=== PATIENT | female | born 1990 | race Caucasian/White ===

== ENCOUNTER 2017-01-04 08:51 | Outpatient (CLI) | payer OTHER ==
[~2017-01-04] VITALS: Ht 165.1 cm; Wt 128.1 kg
[2017-01-04] MEDS ORDERED: PREN1TAB13 PO (09:31)
[2017-01-04 09:32] VITALS: BP 125/75; PULSE 109; RESP 20; Ht 165.1 cm; Wt 128.1 kg
--- NOTE | 2017-01-04 10:35 | RADRPT ---
PROCEDURE: US OB biophysical profile. CLINICAL INDICATION: Contractions TECHNIQUE: Multiple sonographic images of the pelvis were obtained. The images were reviewed on a PACS workstation. COMPARISON: None FINDINGS: There is a single live intrauterine , in cephalic presentation. A normal heart rate i s identified measuring 137 beats per minute. The amniotic fluid index is within normal limits measur ing 15.7 cm. Biophysical profile: movement 2/2 tone 2/2. breathing 2/2 AKOSUA 2/2 Total 09/12 IMPRESSION: 1. Biophysical profile score of 8/8. 2. Single live intrauterine in cephalic presentation with normal heart rate of 137 b pm. 3. Normal amniotic fluid index of 15.7 cm. RPTAT: AAPP Physician Sherman Date Time Electronically viewed and signed by Physician Sherman on 01/04/2017 10:35 ZACHARY/
[2017-01-04 11:35] LABS: ADD UMIC YES; UR AMORPHOUS CRYSTAL FEW /HPF (NONE SEEN); UR ASCORBIC ACID NEGATIVE (NEGATIVE); UR BACTERIA FEW /HPF (NONE SEEN); UR BILIRUBIN (Dip) NEGATIVE (NEGATIVE); UR BLOOD (Dip) NEGATIVE (NEGATIVE); UR CLARITY CLOUDY (CLEAR); UR COLOR YELLOW (YELLOW); UR GLUCOSE (Dip) NEGATIVE (NEGATIVE); UR KETONES (Dip) NEGATIVE (NEGATIVE); UR LEUKOCYTE ESTERASE (Dip) 2+ Leu/ul (NEGATIVE); UR NITRITE (Dip) NEGATIVE (NEGATIVE); UR RBC 4 /HPF (0-5); UR SPECIFIC GRAVITY (Dip) 1.014 (1.003-1.030); UR SQUAMOUS EPITHELIAL CELL FEW /HPF (FEW); UR TOTAL PROTEIN (Dip) NEGATIVE (NEGATIVE); UR UROBILINOGEN (Dip) 1+ mg/dL (NEGATIVE)
--- NOTE | 2017-01-04 12:31 | TRIAGE ---
OB Triage Datetime Report Generated by CPN: 01/04/2017 12:30 Datetime: 01/04/2017 12:22 Vaginal Exam Dilatation (cms): 1.0 Effacement (%): 50 Station: -3 Exam By: FOROOHAR Datetime: 01/04/2017 11:30 Stage of : OB Triage Maternal Assessment Level of Consciousness: Fully Conscious Labor Evaluation Frequency: OCCASIONAL Monitor Mode: External Duration (sec)2399: 100 Quality: Moderate Resting Tone [place]: Relaxed Heart Rate FHR Baseline Rate: 145 Monitor Mode: External US Variability: Moderate 6-25 bpm Accelerations: 15X15 Decelerations: None Pain Assessment Pain Scale: 0 Pain Goal: 3 Membrane Status: Intact Vaginal Bleeding: None Datetime: 01/04/2017 10:30 Stage of : OB Triage Maternal Assessment Level of Consciousness: Fully Conscious Labor Evaluation Frequency: OCCASIONAL Monitor Mode: External Duration (sec)2399: 90-120 Quality: Moderate Resting Tone [place]: Relaxed Heart Rate FHR Baseline Rate: 145 Monitor Mode: External US Variability: Moderate 6-25 bpm Accelerations: 15X15 Decelerations: None Category: Category I Pain Assessment Pain Scale: 0 Pain Goal: 3 Membrane Status: Intact Vaginal Bleeding: None Datetime: 01/04/2017 09:45 Vaginal Exam Dilatation (cms): 1.0 Effacement (%): 60 Station: -3 Exam By: BECKIEJosefina Vaginal Bleeding: None Cervix, Consistency: Soft Cervix, Position: Posterior Datetime: 01/04/2017 09:30 Assessment Type: Triage Maternal Assessment Level of Consciousness: Fully Conscious DTR's/Clonus: DTRs 2+; No Clonus Headache: Denies Blurred Vision: No Respiratory Effort: Unlabored; Regular Rhythm; Equal Expansion Breath Sounds, Left: Clear and Equal Breath Sounds, Right: Clear and Equal Nausea/Vomiting: Denies RUQ Epigastric Pain: Denies Lower Extremities Edema: None Degree: None Upper Extremities Edema: None Degree: None Facial Edema: None Fall Risk Assessment History of Falling: (0) No Secondary Diagnosis: (0) No Ambulatory Aid: (0) Bedrest/Nurse Assist IV Therapy: (0) No Gait: (0) Normal/Bedrest/Immobile Mental Status: (0) Oriented to Own Ability Fall Score: 0 Fall Risk Score Definition: No Risk: No action required Datetime: 01/04/2017 09:29 Time of Arrival: 01/04/2017 08:48 EGA: 39.3 Arrived By: Ambulatory Arrived From: Home Chief Complaint: PT HERE C/O UC'S Movement: Present Contractions: Irregular Time Contractions Began: 01/03/2017 17:00 Rupture of Membranes: Denies Vaginal Bleeding: None Vaginal Discharge: Present Recent Sexual Intercouse: Denies Abdominal Trauma: Not Applicable Patient Complaints: Contractions; Cramping; Back Pain Time Provider Notified: 01/04/2017 09:55 Provider Notified: ANTONIA Initial Plan: EFM/SVE Datetime: 01/04/2017 09:26 Monitor Mode: External Monitor Mode: External US
--- NOTE | 2017-01-04 12:39 | CONS ---
Date/Time of Note Date/Time of Note DATE: 01/04/17 TIME: 12:31 Consultation Date/Type/Reason Admit Date/Time January 04, 2017 OB triage consult This patient is a 26 years old 3 para 1 1 with estimated date of confinement of January 08, 2017 which makes her 39 weeks and 3 days . She came in for possible labor evaluation. On examination she is a well-developed well-nourished lady at term. Her general vital signs are within normal limits with blood pressure of 125/75, pulse rate of 109 respiration 18 temperature 98.2,,, oxygen saturation in room temperature of 95. On examination her ear nose throat appears to be normal his neck is normal no neck vein distention no thyroidomegaly abdomen is soft there is very scattered contraction no palpable contractions no CVA tenderness. On pelvic examination the cervix is 1 cm dilated 50% effaced at -3 station with intact membrane. . Laboratory Tests Test 01/04/17 10:30 Urine Color YELLOW Urine Clarity CLOUDY Urine pH 7.0 Urine Specific [place] 1.014 Urine Ketones NEGATIVEmg/dL Urine Nitrite NEGATIVEmg/dL Urine Bilirubin NEGATIVEmg/dL Urine Urobilinogen 1+mg/dL Urine Leukocyte Esterase 2+Tye/ul Urine Microscopic RBC 4/HPF Urine Microscopic WBC 14/HPF Urine Squamous Epithelial Cells FEW/HPF Urine Amorphous Crystals FEW/HPF Urine Bacteria FEW/HPF Urine Hemoglobin NEGATIVEmg/dL Urine Glucose NEGATIVEmg/dL Urine Total Protein NEGATIVEmg/dl Constitutional: No chills, No diaphoresis, No disoriented, No febrile, No improved, No no complaints, No other, No poor po, No requiring IVF, No requiring O2 Eyes: No discharge, No no complaints, No other, No pain, No redness, No visual change ENT: No bleeding, No congestion, No discharge, No dysphagia, No no complaints, No other, No pain, No sore throat Respiratory: No cough, No no complaints, No other, No pain, No pleuritic pain, No shortness of breath, No sputum, No wheezing Cardiovascular: No chest pain, No edema, No lightheadedness, No no complaints, No orthopenea, No other, No palpitations, No paroxysmal nocturnal dyspnea Gastrointestinal: No blood, No constipation, No decreased appetite, No diarrhea , No flatus, No nausea, No no complaints, No other, No pain, No passing stool, No vomiting Genitourinary: No bleeding, No discharge, No dysuria, No flank pain, No hematuria, No no complaints, No other Skin: No bruising, No erythema, No laceration, No no complaints, No other, No pruritis, No rash, No skin lesions Neurologic: No confusion, No dizziness, No focal-weakness, No headache, No no complaints, No other, No seizure, No syncope Additional Comments On lab study her urinalysis showed 1+ urinary urobilinogen leukoesterase plus and WBC 14. Due to history of urinary tract infection during this and antibiotic treatment 2 weeks ago we will send a urine specimen again for culture and sensitivity. We will hold onto antibiotic treatment to the result of the culture sensitivity is available for possible new type of antibiotic depending on the results of culture sensitivity. On ultrasound study report is single live intrauterine in cephalic presentation heartbeat of the baby 137 amniotic fluid index was 17.7 cm her biophysical profile of 8/8. We repeated the pelvic examination for about 2-1/2 hours of stay in the hospital and cervix was completely unchanged. Disposition due to very scattered contraction and lack of change of the cervix and no evidence of active labor patient will be discharged home in the urine specimen for sent will be sent for culture and sensitivity she is advised to return to the clinic if any true evidence of labor vaginal bleeding rupture membrane. Social History Smoking Status: Never smoker Exam/Review of Systems Vital Signs Vitals Vital Signs Date Time Temp Pulse Resp B/P Pulse Ox O2 Delivery O2 Flow Rate FiO2 01/04/17 09:32 98.2 109 20 125/75 95 Room Air Results Results 24 hrs Laboratory Tests Test 01/04/17 10:30 Urine Color YELLOW Urine Clarity CLOUDY A Urine pH 7.0 Urine Specific [place] 1.014 Urine Ketones NEGATIVE Urine Nitrite NEGATIVE Urine Bilirubin NEGATIVE Urine Urobilinogen 1+ H Urine Leukocyte Esterase 2+ H Urine Microscopic RBC 4 Urine Microscopic WBC 14 H Urine Squamous Epithelial Cells FEW Urine Amorphous Crystals FEW A Urine Bacteria FEW A Urine Hemoglobin NEGATIVE Urine Glucose NEGATIVE Urine Total Protein NEGATIVE JANE KNIGHT MD Jan 04, 2017 12:39
== END 2017-01-04 12:39 | disposition home or self-care (01) ==
LOC: OBT 08:51 → L-D 08:51 → OBT 12:39
PROVIDERS: ATTEND Obstetrics & Gynecology
DX: O62.9 Abnormality of forces of labor, unspecified (principal); Z3A.39 39 weeks gestation of pregnancy
CPT/HCPCS: 76818; 81001; Z7500; G0463

== ENCOUNTER 2017-01-05 11:52 | Inpatient (IN) | payer OTHER ==
[~2017-01-05] VITALS: Ht 162.6 cm; Wt 128.7 kg
[~2017-01-05 11:52] MED LIST: PREN1TAB13 PO
[2017-01-05] MEDS ORDERED: OXYTOCIN 30 UNITS/LR 500 ML IV SCH (13:13)
[2017-01-05] MEDS ORDERED: MISOPROSTOL 200 MCG TAB PR PRN ×2 (13:30→17:30)
[2017-01-05] MEDS ORDERED: OXYCODONE/ACETAMINOPHEN (5/325) TAB PO PRN ×2 (13:30)
[2017-01-05] MEDS ORDERED: OXYTOCIN 30 UNITS/LR 500 ML IV PRN ×2 (13:30→17:30)
[2017-01-05] MEDS ORDERED: CARBOPROST 250 MCG INJ IM PRN ×2 (13:30→17:30)
[2017-01-05] MEDS ORDERED: METHYLERGONOVINE 0.2 MG INJ IM PRN ×2 (13:30→17:30)
[2017-01-05] MEDS ORDERED: LANOLIN 7 GM TUBE TOP PRN (13:30)
[2017-01-05] MEDS ORDERED: HYDROCODONE/APAP (5/325) TAB PO PRN ×2 (13:30)
[2017-01-05] MEDS ORDERED: CEFAZOLIN 1 GM/50 ML (PMX) 50 ML IVPB SCH (13:30)
--- NOTE | 2017-01-05 13:31 | HP ---
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 Chief Complaint: 39 weeks history of previous Estimated Due Date: Jan 12, 2017 : 4 Para: 2 Spontaneous : 1 Therapeutic : 0 Ultrasounds: Normal mid trimester US Obstetrical Complications: None Past Family/Social History * Past Medical, Surgical, Family and Obstetric Histories reviewed from chart. Rubella: immune RPR/VDRL: Negative GBS Status: Negative HBsAG: Negative OB Admission Exam Physical Exam HEENT: WNL Heart: Rhythm Normal Lungs: Clear, Equal Abdomen: WNL Reflexes: Normal Station: Ballotable Membranes: Intact Heart Rate: 130's Accelerations: Accelerations Present Decelerations: No Decelerations Varibility: Moderate OB Assessment/Plan Reason for admission: other (39 weeks history of previous section) Other plan: 41 week Ab1 EDC January 12, 2017 history of previous admitted at 39 weeks gestation for repeat section complication of the surgery including bowel bladder injury infection hemorrhage or hematoma wound infection has been discussed with the patient and she would like to proceed with the procedure. YVONNE PEGUERO MD Jan 05, 2017 13:29
--- NOTE | 2017-01-05 13:57 | RADRPT ---
PROCEDURE: US OB. CLINICAL INDICATION: Size and dates TECHNIQUE: Multiple sonographic images of the pelvis and gravid uterus were obtained. The images were reviewed on a PACS workstation. COMPARISON: US PELVIS 01/04/2017 FINDINGS: There is a single viable intrauterine gestation. Cardiac activity is present with 161 beats per min cheo. There is a vertex presentation. The placenta is anterior fundal. There is no evidence for an abruption or placenta previa. Measurements were made in order to determine age. The results are as follows: BPD =9.5 cm HC =33.8 cm AC =36.2 cm FL =6.9 cm Estimated gestational age of approximately 38 weeks and 2 days based on ultrasound measurements. Clinical age: 39 weeks and 4 days. The estimated date of delivery is 01/17/17, based on ultrasound measurements. The EFW = 3599 g, 55%, based on LMP age. RPTAT: AA IMPRESSION: Single viable intrauterine gestation of approximately 38 weeks and 2 days based on ultrasound measu rements. .Jacinto Cartwright MD, Date Time Electronically viewed and signed by .Jacinto Cartwright MD, on 01/05/2017 13:57 .S/
--- NOTE | 2017-01-05 13:59 | RADRPT ---
PROCEDURE: US OB biophysical profile. CLINICAL INDICATION: decreased movements, TECHNIQUE: Multiple sonographic images of the pelvis were obtained. The images were reviewed on a PACS workstation. COMPARISON: US PELVIS 01/04/2017 FINDINGS: There is a single viable intrauterine gestation. Cardiac activity is present with 156 beats per min teller. There is a vertex presentation. The placenta is anterior fundal. There is no evidence of placental abruption. There is a normal amount of amniotic fluid with an KAOSUA = 10.7 cm. Biophysical profile: movement 2/2 tone 2/2. breathing 2/2 AKOSUA 2/2 Total 09/12 RPTAT: AA . IMPRESSION: Normal biophysical profile. . .Jacinto Cartwright MD, MD Date Time Electronically viewed and signed by .Jacinto Cartwright MD, MD on 01/05/2017 13:59 .S/
--- NOTE | 2017-01-05 17:11 | HP ---
Date/Time of Note Date/Time of Note DATE: 01/05/17 TIME: 17:06 OB - History Hx of Present Free Text/Dictation 26 years old female SAB 2 IAB 2 EDC January 08, 2017 admitted to the hospital at 39 weeks and 4 day in early labor pelvic examination on admission cervix 2-1/2 cm dilated 60% effaced vertex at -2 station heart rate category 1 Chief Complaint: Labor contraction Estimated Due Date: Jan 08, 2017 : 6 Para: 1 Spontaneous : 2 Care: Good Care Ultrasounds: Normal mid trimester US Obstetrical Complications: None Medical Complications: None Past Family/Social History * Past Medical, Surgical, Family and Obstetric Histories reviewed from chart. Rubella: immune RPR/VDRL: Negative GBS Status: Negative HBsAG: Negative OB Admission Exam Physical Exam HEENT: WNL Heart: Rhythm Normal Lungs: Clear, Equal Abdomen: WNL Extremities: Normal Reflexes: Normal Cervical Dilatation: 2cm Effacement: Other (60% effaced vertex at -2 station) Station: -2 Membranes: Intact Heart Rate: 130's Accelerations: Accelerations Present Varibility: Moderate Contractions on Admission: 6-10 Minutes Apart Intensity: Mild OB Assessment/Plan Reason for admission: other (39 weeks 4 days onset of labor) Other plan: 26 years old female G6, P1 SAB 2 IAB 2 admitted at 39 weeks and 4 days in early labor admitted for expecting management possible delivery YVONNE PEGUERO MD Jan 05, 2017 17:11
[2017-01-05 17:25] LABS: BASOPHILS % 0.2 % (0.0-2.0); EOSINOPHILS # 0.1 10^3/ul (0.0-0.5); EOSINOPHILS % 0.8 % (0.0-7.0); HEMATOCRIT 31.7 % (37.0-47.0); HEMOGLOBIN 10.6 g/dl (12.0-16.0); LYMPHOCYTES # 2.4 10^3/ul (0.8-2.9); LYMPHOCYTES % 19.6 % (15.0-51.0); MEAN CORPUSCULAR HEMOGLOBIN 28.9 pg (29.0-33.0); MEAN CORPUSCULAR HGB CONC 33.4 g/dl (32.0-37.0); MEAN CORPUSCULAR VOLUME 86.4 fl (82.0-101.0); MEAN PLATELET VOLUME 9.6 fl (7.4-10.4); MONOCYTE # 0.8 10^3/ul (0.3-0.9); MONOCYTES % 6.8 % (0.0-11.0); NEUTROPHIL # 8.6 10^3/ul (1.6-7.5); NEUTROPHILS % 70.6 % (39.0-77.0); PLATELET COUNT 223 10^3/UL (140-415); RED BLOOD COUNT 3.67 10^6/ul (4.20-5.40); RED CELL DISTRIBUTION WIDTH 15.4 % (11.5-14.5); WHITE BLOOD COUNT 12.2 10^3/ul (4.8-10.8)
[2017-01-05 17:30] LABS: INR 0.96; PROTIME 12.9 Sec (11.9-14.9)
[2017-01-05] MEDS ORDERED: IBUPROFEN 600 MG TAB PO PRN (17:30)
[2017-01-05] MEDS ORDERED: LIDOCAINE 1% (MPF) 30 ML INJ INJ PRN (17:30)
[2017-01-05 17:31] LABS: PARTIAL THROMBOPLASTIN TIME 35.3 Sec (25.0-35.0)
[2017-01-05] MEDS: LACTATED RINGER'S 1,000 ML IV SCH (17:42)
[2017-01-05 17:47] VITALS: Ht 162.6 cm; Wt 128.7 kg
[2017-01-05 17:48] VITALS: BP 128/61; PULSE 100; RESP 18
[2017-01-05] MEDS ORDERED: IBUPROFEN 600 MG TAB PO SCH (18:00)
[2017-01-05 20:03] LABS: BARBITURATES Negative (NEGATIVE); BENZODIAZEPINES Negative (NEGATIVE); COCAINE Negative (NEGATIVE); OPIATES Negative (NEGATIVE)
[2017-01-05 20:22] LABS: CANNABINOIDS Negative (NEGATIVE)
[2017-01-05] MEDS: BUTORPHANOL 2 MG INJ IV PRN (23:47)
[2017-01-06] MEDS: LACTATED RINGER'S 1,000 ML IV SCH ×3 (00:33→17:14)
[2017-01-06] MEDS ORDERED: SENNA/DOCUSATE NA (8.6MG/50MG) TAB PO SCH (09:00)
[2017-01-06] MEDS: OXYTOCIN 30 UNITS/LR 500 ML IV SCH (10:33)
[2017-01-06] MEDS: BUTORPHANOL 2 MG INJ IV PRN (19:28)
[2017-01-07] MEDS: OXYTOCIN 30 UNITS/LR 500 ML IV SCH ×5 (00:49→21:24)
[2017-01-07] MEDS: LACTATED RINGER'S 1,000 ML IV SCH ×3 (01:51→17:18)
[2017-01-07] MEDS ORDERED: CEFAZOLIN 2 GM/50 ML (PMX) 50 ML IVPB ONE ×2 (09:00→09:03)
[2017-01-07] MEDS ORDERED: FENTAnyl 50 MCG/ML VIAL ONE (10:30)
[2017-01-07] MEDS ORDERED: PHENYLephrine (100 MCG/ML) 5ML SYG ONE (10:30)
[2017-01-07] MEDS ORDERED: morphine SULFATE/PF (10 MG/10 ML) INJ ONE (10:30)
[2017-01-07] MEDS ORDERED: ONDANSETRON 4 MG INJ ONE ×2 (10:43→14:17)
[2017-01-07] MEDS ORDERED: DEXAMETHASONE 4 MG/ML 1 ML INJ ONE (10:43)
--- NOTE | 2017-01-07 11:57 | OPR ---
Operative Report Planned Procedure Free Text/Dictation 26 years old female [id number] EDC January 08, 2017 admitted at 39 weeks and 4 days in labor, due to inadequate and inefficient contraction force every 5-7 minute she required labor augmentation, pelvic examination on admission cervix 2 cm dilated 50-60% effaced vertex at -2 station, her labor augmented with Pitocin IV drip, after approximately day and a half augmentation there was no further cervical dilatation patient declined further trial of labor requested delivery, complication of including but not limited to bowel and bladder injury. Wound infection and hematoma explained to her, she is firm on her decision therefore being prepared for primary for failure to progress and decline further trial of labor Procedure date Jan 07, 2017 Procedure(s) Primary Performed by see signature line Trauma Coordinator DR JANE KNIGHT Anesthesiologist: LINDA GALEANO DO Pre-procedure diagnosis 40 weeks 5 days failed labor augmentation, declined further trial of labor requested operative delivery by section. Anesthesia Type: spinal Post-Procedure Post-procedure diagnosis Primary Findings Live Baby boy 9 and 9 Estimated Blood Loss: 500 - 600 mls Specimen(s) none Grafts/Implant(s) none Complication(s) none Pt Condition post procedure: stable Procedure Description Under satisfactory spinal anesthesia patient prepped and draped and placed in supine position. Pfannenstiel incision was made. Incision carried through the subcutaneous tissue. Fascia incised to the length of incision. Rectus muscle divided in midline. Peritoneum exposed and entered to a vertical incision. Exploration of abdomen revealed [gravid uterus at term normal-appearing tubes and ovaries.] Bladder flap was developed. Transverse incision was made in the lower segment of the uterus. Amniotic sac ruptured, [clear amniotic fluid noted. ] Live baby boy was delivered from unengaged vertex.Naso oropharyngeal suction was performed. Baby handed to the team for immediate attention. Patient received 20 units of Pitocin. Placenta delivered manually intact. Uterine cavity cleaned with a wet sponge and drainage established. Uterus closed in 2 layers using Monocryl #1 in continuous fashion. Peritoneal cavity irrigated with warm saline. Sponge needle instrument reported to be correct. Abdominal peritoneum closed with 2-0 chromic catgut continuously. Fascia closed with #1 PDS in a continuous fashion. Subcutaneous tissue irrigated with warm saline and approximated with 2-0 chromic catgut skin closed with N sorb. Estimated blood loss [600 cc]. Urine bag containing [200] mL of [clear] urine. Patient tolerated procedure well and transferred to recovery room in good condition. YVONNE PEGUERO MD Jan 07, 2017 11:47
[2017-01-07] MEDS ORDERED: DIPHENHYDRAMINE 50 MG INJ IV PRN (14:30)
[2017-01-07] MEDS ORDERED: NALBUPHINE HCL (10 MG/1 ML) INJ IV PRN (14:30)
[2017-01-07] MEDS ORDERED: HYDROmorphONE 0.5 MG/0.5 ML SYG IV PRN ×2 (14:30)
[2017-01-07] MEDS ORDERED: ONDANSETRON 4 MG INJ IV PRN (14:30)
[2017-01-07] MEDS ORDERED: NALOXONE (0.4 MG/ML) INJ IV PRN (14:30)
[2017-01-07] MEDS ORDERED: ZOLPIDEM 5 MG TAB PO PRN (14:30)
[2017-01-07] MEDS: KETOROLAC 30 MG INJ IV PRN (14:31)
[2017-01-07 17:25] VITALS: BP 138/71; PULSE 86; RESP 17
[2017-01-07] MEDS ORDERED: OXYCODONE/ACETAMINOPHEN (5/325) TAB PO PRN (17:30)
[2017-01-07] MEDS ORDERED: LANOLIN 7 GM TUBE TOP PRN (17:30)
[2017-01-07] MEDS ORDERED: CARBOPROST 250 MCG INJ IM PRN (17:30)
[2017-01-07] MEDS ORDERED: CEFAZOLIN 1 GM/50 ML (PMX) 50 ML IVPB SCH (17:30)
[2017-01-07] MEDS ORDERED: MISOPROSTOL 200 MCG TAB PR PRN (17:30)
[2017-01-07] MEDS ORDERED: METHYLERGONOVINE 0.2 MG INJ IM PRN (17:30)
[2017-01-07] MEDS ORDERED: OXYTOCIN 30 UNITS/LR 500 ML IV PRN (17:30)
[2017-01-07] MEDS: IBUPROFEN 600 MG TAB PO SCH (18:00)
[2017-01-07 20:00] VITALS: BP 112/54; PULSE 95; RESP 20
[2017-01-07] MEDS: SENNA/DOCUSATE NA (8.6MG/50MG) TAB PO SCH (21:00)
[2017-01-08] MEDS: OXYTOCIN 30 UNITS/LR 500 ML IV SCH ×4 (00:34→13:24)
[2017-01-08 03:33] VITALS: BP 121/62; PULSE 72; RESP 20
[2017-01-08] MEDS: KETOROLAC 30 MG INJ IV PRN ×2 (04:44→09:13)
[2017-01-08] MEDS: IBUPROFEN 600 MG TAB PO SCH ×5 (06:00→23:51)
[2017-01-08 07:46] LABS: BASOPHILS % 0.2 % (0.0-2.0); EOSINOPHILS # 0.1 10^3/ul (0.0-0.5); EOSINOPHILS % 0.5 % (0.0-7.0); HEMATOCRIT 29.3 % (37.0-47.0); HEMOGLOBIN 9.7 g/dl (12.0-16.0); LYMPHOCYTES % 15.9 % (15.0-51.0); MEAN CORPUSCULAR HEMOGLOBIN 28.5 pg (29.0-33.0); MEAN CORPUSCULAR HGB CONC 33.1 g/dl (32.0-37.0); MEAN CORPUSCULAR VOLUME 86.2 fl (82.0-101.0); MEAN PLATELET VOLUME 9.6 fl (7.4-10.4); MONOCYTES % 7.8 % (0.0-11.0); NEUTROPHIL # 9.1 10^3/ul (1.6-7.5); NEUTROPHILS % 73.9 % (39.0-77.0); PLATELET COUNT 203 10^3/UL (140-415); RED CELL DISTRIBUTION WIDTH 15.5 % (11.5-14.5); WHITE BLOOD COUNT 12.4 10^3/ul (4.8-10.8)
[2017-01-08 08:30] VITALS: BP 102/54; PULSE 94; RESP 18
[2017-01-08] MEDS ORDERED: DIPHTH/TET/ACEL PERTUSS (ADULT) 0.5 ML VIAL IM* ONE (09:00)
[2017-01-08] MEDS: SENNA/DOCUSATE NA (8.6MG/50MG) TAB PO SCH ×2 (09:12→20:18)
--- NOTE | 2017-01-08 10:10 | QN ---
Documentation Comment Post day 1 Afebrile Vital signs are stable Abdomen soft, incision dry, bowel sounds present, lochia moderate, extremities normal, ambulation encouraged YVONNE PEGUERO MD Jan 08, 2017 10:10
[2017-01-08] MEDS: OXYCODONE/ACETAMINOPHEN (5/325) TAB PO PRN ×2 (10:58→16:38)
[2017-01-08 15:45] VITALS: BP 127/74; PULSE 82; RESP 17
[2017-01-08 20:00] VITALS: BP 110/56; PULSE 96; RESP 20
[2017-01-08] MEDS: HYDROCODONE/APAP (5/325) TAB PO PRN (20:20)
[2017-01-09 04:00] VITALS: BP 132/65; PULSE 77; RESP 20
[2017-01-09] MEDS: HYDROCODONE/APAP (5/325) TAB PO PRN ×4 (04:59→20:26)
[2017-01-09] MEDS: IBUPROFEN 600 MG TAB PO SCH ×4 (06:40→23:47)
[2017-01-09 08:00] VITALS: BP 115/68; PULSE 86; RESP 18
[2017-01-09] MEDS: SENNA/DOCUSATE NA (8.6MG/50MG) TAB PO SCH ×2 (09:57→20:26)
--- NOTE | 2017-01-09 12:30 | QN ---
Documentation Comment The post Afebrile Vital signs are stable Abdomen soft Uterus firm Incision dry, bowel sounds present, no bowel movement, ambulation encouraged, if no BM by this afternoon fleets enema recommended YVONNE PEGUERO MD Jan 09, 2017 12:30
[2017-01-09] MEDS ORDERED: NA PHOSPHATE/BIPHOS 133 ML ENEMA PR ONE (13:00)
[2017-01-09 16:23] VITALS: BP 120/69; PULSE 96; RESP 16
[2017-01-09 20:00] VITALS: BP 135/61; PULSE 81; RESP 18
[2017-01-10 04:00] VITALS: BP 133/76; PULSE 89; RESP 18
[2017-01-10] MEDS: HYDROCODONE/APAP (5/325) TAB PO PRN ×3 (04:10→15:50)
[2017-01-10] MEDS: IBUPROFEN 600 MG TAB PO SCH ×2 (05:32→12:26)
[2017-01-10 08:30] VITALS: BP_SYST 87; PULSE 71; RESP 18
[2017-01-10] MEDS ORDERED: DIPHTH/TET/ACEL PERTUSS (ADULT) 0.5 ML VIAL IM* ONE (09:00)
[2017-01-10] MEDS: SENNA/DOCUSATE NA (8.6MG/50MG) TAB PO SCH (09:00)
--- NOTE | 2017-01-10 10:27 | PN ---
Date/Time of Note Date/Time of Note DATE: 01/10/17 TIME: 10:25 OB Subjective Subjective Subjective Ambulated. Passed flatus. Breast-feeding. Vaginal bleeding decreased. Complaint of bilateral lower extremity swelling. Denies any pain in the lower extremities. Urinated. Denies any depressive symptoms. Tolerated regular diet OB Objective Objective Objective General appearance: Alert and oriented 4. Does not appear to be in any acute distress. Abdomen: Soft, incision clean dry and intact. Appropriate tenderness in the incision noted. No evidence of erythema, drainage , hematoma next Extremities: Bilateral symmetric lower extremity edema. No calf tenderness, no cord, negative Homans sign Lungs: Clear to auscultation bilaterally next CV: RRR Hematology - 72 Hrs Test 01/08/17 07:23 White Blood Count 12.410^3/ul (4.8-10.8) H Red Blood Count 3.4010^6/ul (4.20-5.40) L Hemoglobin 9.7g/dl (12.0-16.0) L Hematocrit 29.3% (37.0-47.0) L Mean Corpuscular Volume 86.2fl (82.0-101.0) Mean Corpuscular Hemoglobin 28.5pg (29.0-33.0) L Mean Corpuscular Hemoglobin Concent 33.1g/dl (32.0-37.0) Red Cell Distribution Width 15.5% (11.5-14.5) H Platelet Count 44271^3/UL (140-415) Mean Platelet Volume 9.6fl (7.4-10.4) Neutrophils % 73.9% (39.0-77.0) Lymphocytes % 15.9% (15.0-51.0) Monocytes % 7.8% (0.0-11.0) Eosinophils % 0.5% (0.0-7.0) Basophils % 0.2% (0.0-2.0) Nucleated Red Blood Cells % 0.0/100WBC (0.0-0.0) Neutrophils # 9.110^3/ul (1.6-7.5) H Lymphocytes # 2.010^3/ul (0.8-2.9) Monocytes # 1.010^3/ul (0.3-0.9) H Eosinophils # 0.110^3/ul (0.0-0.5) Basophils # 0.010^3/ul (0.0-0.1) Nucleated Red Blood Cells # 0.010^3/ul (0.0-0.0) OB Assessment/Plan Other Assessment: Status post primary section due to failure to progress Postoperative day #3. Doing well. Stable to be discharged home today. Postop 3 related to postop anemia. Asymptomatic. Patient to take iron twice a day with food supplement Advised patient to follow-up in 1 week and 6 weeks postop for postop and visit SABRINA BONILLA MD Jan 10, 2017 10:27
--- NOTE | 2017-01-10 10:30 | PDOCDIS ---
Discharge Instructions CONDITION Patient Condition: Good HOME CARE INSTRUCTIONS: Diet Instructions: Iron rich diet and high-fiber diet ACTIVITY: Activity Restrictions: Slowly Increase Activity No Sexual Activity Do not Drive Do not operate Machinery Do not operate Power Tool Avoid Heavy Housework No Weight Bearing Bathing Restrictions: Shower FOLLOW UP/APPOINTMENTS Follow-up Plan 1 week and 6 weeks postop SCHOOL/WORK RELEASE May return to School/Work with: With Restrictions SABRINA BONILLA MD Jan 10, 2017 10:30
[2017-01-10] MEDS ORDERED: DOCU-144 PO (10:32)
[2017-01-10] MEDS ORDERED: LANO28CR TOP (10:32)
--- NOTE | 2017-01-10 10:35 | DS ---
Date/Time of Note Date/Time of Note DATE: 01/10/17 TIME: 10:33 Obstetrical Discharge Record Final Diagnosis Final Diagnosis: Term delivered Other Final Diagnosis Status post section due to failure to progress Vaginal Delivery Other Delivery information Status post primary low transverse section due to failure to progress Section Section: Primary Primary Indication Failure to progress Complications Other (Maternal obesity) Augmentation: Yes Induction: Yes Rupture of Membranes: No Condition on Discharge Physical Assessment Voiding: Yes Bowel Movement: Yes Breast: Soft, non-tender Fundus: Firm Abdomen and Incision: Soft, appropriate tenderness in the incision, no evidence of drainage , hematoma or erythema Calf Tenderness: No Patient Condition: Good SABRINA BONILLA MD Jan 10, 2017 10:35
== END 2017-01-10 18:17 | disposition home or self-care (01) | DRG 766 ==
LOC: OBT 11:52 → L-D 11:54 → OBT 14:42 → L-D 16:25 → PP1 01-07 17:26
PROVIDERS: ADMIT Obstetrics & Gynecology; ATTEND Obstetrics & Gynecology
PROC: 10D00Z1 Extraction of Products of Conception, Low, Open Approach (ICD-10-PCS; principal; 2017-01-07 11:00)
DX: O62.0 Primary inadequate contractions (principal); Z37.0 Single live birth; Z3A.39 39 weeks gestation of pregnancy
CPT/HCPCS: 76815; 76818; 80307; 85025; 85610; 85730; 86592; 86900; 86901; 87340; 90715; 94760; 99464; G0463; J0595; J0690; J1100; J1170; J1200; J1885; J2274; J2370; J2405; J2590; J3010; J7120

== ENCOUNTER 2017-01-15 11:02 | Emergency (ER) | payer OTHER ==
[~2017-01-15] VITALS: Ht 162.6 cm; Wt 120.0 kg
[~2017-01-15 11:02] MED LIST changes: +DOCU-144 PO; +LANO28CR TOP
[2017-01-15 11:05] VITALS: Ht 162.6 cm; Wt 120.0 kg
--- NOTE | 2017-01-15 13:08 | ERD ---
ER Documentation Chief Complaint Chief Complaint had 01/07/17, site opened yesterday HPI 26-year-old female, status post on January 07, 2017 comes emergency department with a "opening" on the left side of her site that occurred 2 days ago when she slipped and fell in the shower. Patient describes localized pain that is superficial, she states that there is a small amount of discharge that had come out was concerned that may have been an opening or infection. The patient has not had any further abdominal pain, fevers, chills, vomiting. ROS All systems reviewed and are negative except as per history of present illness. Medications Home Meds Active Scripts Docusate Sodium* (Colace*) 100 Mg Capsule, 100 MG PO BID Y for CONSTIPATION, # 60 CAP Prov:SABRINA BONILLA MD 01/10/17 Lanolin* (Rmj-R-Psqtib*) 28 Gm Cream..g., 1 APPLIC TOP BEDSIDE MEDICATION Y for BEDSIDE FOR SHYAM TO NIPPLES for 30 Days, #3 BOX 3 Refills Prov:SABRINA BONILLA MD 01/10/17 Reported Medications Pnv95/Ferrous Fumarate/FA ( Vitamins Tablet) 1 Each Tablet, 1 EACH PO DAILY, TAB 01/04/17 Allergies Allergies: Coded Allergies: pineapple (Verified Allergy, Intermediate, RASH, 01/06/17) PMhx/Soc History of Surgery: Yes (C-SEC) Anesthesia Reaction: No Hx Neurological Disorder: No Hx Respiratory Disorders: No Hx Cardiac Disorders: No Hx Psychiatric Problems: No Hx Miscellaneous Medical Probl: No Hx Alcohol Use: No Hx Substance Use: No Hx Tobacco Use: No Smoking Status: Former smoker Physical Exam Vitals Vital Signs Date Time Temp Pulse Resp B/P Pulse Ox O2 Delivery O2 Flow Rate FiO2 01/15/17 11:05 98.7 70 18 148/102 98 Physical Exam = General: Well-developed, well-nourished. The patient appears in no acute distress. HEENT: Head is normocephalic, atraumatic. No scleral icterus. Neck: Supple. Nontender. Lungs: Clear to auscultation. Normal air movement. Heart: Regular rate and rhythm. S1 and S2 are normal. No murmurs, gallops, or rubs. Abdomen: Nondistended. Abdomen is nontender, no peritoneal signs or guarding. is intact, there is a superficial opening on the left lateral aspect of the wound. There is no dehiscence, the opening is extremely superficial, and approximately 4 mm. There is no erythema, drainage. Extremities: No clubbing or cyanosis. Moving extremities x 4. No weakness. Neurologic: Alert and oriented 3. No focal deficits. Normal speech and gait. Skin: Normal turgor. No rash or lesions. Procedures/MDM 26-year-old female has a very superficial opening on the left side of the C- section site. I doubt dehiscence, infection, hemoperitoneum, abscess, endometritis. Patient has been advised to keep the area clean and dry, and recheck with her OB. Departure Diagnosis: Primary Impression: Encounter for postoperative wound check Condition: Good Patient Instructions: Post Op Wound Check, CYDNEY Bradley PA-C Jan 15, 2017 13:08
== END 2017-01-15 13:03 | disposition home or self-care (01) ==
LOC: FTE 11:02
DX: O9A.23 Injury, poisoning and certain other consequences of external causes complicating the puerperium (principal); T81.31XA Disruption of external operation (surgical) wound, not elsewhere classified, initial encounter; W01.198A Fall on same level from slipping, tripping and stumbling with subsequent striking against other object, initial encounter; Y65.8 Other specified misadventures during surgical and medical care; Y92.002 Bathroom of unspecified non-institutional (private) residence as the place of occurrence of the external cause; Z87.891 Personal history of nicotine dependence
CPT/HCPCS: 99282

== ENCOUNTER 2018-04-17 10:13 | Emergency (ER) | payer OTHER ==
[~2018-04-17] VITALS: Ht 167.6 cm; Wt 122.6 kg
[2018-04-17 10:15] VITALS: Ht 167.6 cm; Wt 122.6 kg
--- NOTE | 2018-04-17 10:59 | ERD ---
ER Documentation Chief Complaint Chief Complaint anxiety and sob x 3 hours HPI 30-year-old female with past medical history of depression and anxiety who presents with complaint of feeling anxious as well as shortness of breath since yesterday after work. States she feels like she is having an anxiety attack. States she has had intermittent lightheadedness and dizziness and is felt short of breath. She otherwise denies chest pain, dyspnea, fevers chills, urinary symptoms, or recent illness. She is on a number of psychiatric medications for treatment of her depression including venlafaxine, mirtazapine, trazodone, and fluoxetine. Reports he took a single dose of mirtazapine last night around 9 PM as she could not sleep. Took another dose at around 10:30 pm. She otherwise has been taking her made her usual medications in the usual doses. She denies any active drug or alcohol abuse. She denies any suicidal ideation. States she has been under a lot of stress as she lost the father of her child last year as well as other stressors. States she has never been hospitalized or presented to the ED for anxiety. She denies any allergies to any medications reports all vaccinations up-to-date. ROS All systems reviewed and are negative except as per history of present illness. Medications Home Meds Active Scripts Docusate Sodium* (Colace*) 100 Mg Capsule, 100 MG PO BID PRN for CONSTIPATION, #60 CAP Prov:SABRINA BONILLA MD 01/10/17 Lanolin* (Mwm-C-Guwwvu*) 28 Gm Cream..g., 1 APPLIC TOP BEDSIDE MEDICATION PRN for BEDSIDE FOR SHYAM TO NIPPLES for 30 Days, #3 BOX 3 Refills Prov:SABRINA BONILLA MD 01/10/17 Reported Medications Pnv95/Ferrous Fumarate/FA ( Vitamins Tablet) 1 Each Tablet, 1 EACH PO DAILY, TAB 01/04/17 Allergies Allergies: Coded Allergies: pineapple (Verified Allergy, Intermediate, RASH, 04/17/18) PMhx/Soc History of Surgery: Yes (C-SEC) Anesthesia Reaction: No Hx Neurological Disorder: No Hx Respiratory Disorders: No Hx Cardiac Disorders: No Hx Psychiatric Problems: No Hx Miscellaneous Medical Probl: No Hx Alcohol Use: No Hx Substance Use: No Hx Tobacco Use: No FmHx Family History: No diabetes, No coronary disease, No other Physical Exam Vitals Vital Signs Date Temp Pulse Resp B/P (MAP) Pulse Ox O2 O2 Flow FiO2 Time Delivery Rate 04/17/18 98.2 102 20 156/97 99 10:15 (116) Physical Exam I have reviewed the triage vital signs. Const: Well nourished, well developed, appears stated age, mild distress and quite anxious, speaking in full sentences Eyes: PERRL, no conjunctival injection HENT: NCAT, Neck supple without meningismus CV: RRR, Warm, well-perfused extremities RESP: CTAB, labored but moving air well GI: soft, non-tender, non-distended, no masses MSK: No gross deformities appreciated Skin: Warm, dry. 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 Sensation and motor function of extremities grossly intact. Psych: Appropriate mood and affect but very anxious appearing Results 24 hrs Current Medications Medications Dose Sig/Zoey Start Time Status Last (Trade) Ordered Route PRN Stop Time Admin Dose Reason Admin Lorazepam 2 mg ONCE ONCE 04/17/18 DC 04/17/18 (Ativan) PO 11:00 11:03 04/17/18 11:01 Procedures/MDM 27 yo F patient presents with symptoms consistent with acute anxiety reaction / panic attack. Low suspicion for acute cardiopulmonary process including ACS, PE, or thoracic aortic dissection. Denies any ingestions or any other medical complaints. No evidence of alcohol withdrawal symptoms. Presentation not consistent with overt toxidrome, ingestion given history & physical. Presentation not consistent with organic or medical emergency at this time. No acute indication for psychiatric consultation (without SI/HI, AH/VH). Cautious return precautions discussed with full understanding. Plan: Rx ativan, EKG without acute findings SR at 81 BPM You have been evaluated in the Emergency Department today for your psychiatric complaint. You were evaluated by both Emergency Medicine and Psychiatry staff and have been cleared to go home. Please follow up with your psychiatrist within 2-3 days. Please use the resources given to you in the Emergency Department. Return to the Emergency Department if you experience thoughts of hurting yourself or others, audio or visual hallucinations, or for any other concerning symptoms. Departure Diagnosis: Primary Impression: Anxiety Additional Impression: Anxiety attack Condition: Stable Patient Instructions: Anxiety Reaction, Understanding Anxiety Disorders Referrals: [facility] JENIFER GEORGES PA-C Apr 17, 2018 10:58
[2018-04-17] MEDS ORDERED: LORAZEPAM 1 MG TAB PO ONE (11:00)
[2018-04-17 11:50] VITALS: BP 138/78; PULSE 95; RESP 19
== END 2018-04-17 11:51 | disposition home or self-care (01) ==
LOC: FTE 10:13
DX: F41.9 Anxiety disorder, unspecified (principal); R06.02 Shortness of breath
CPT/HCPCS: 93005; Z7502; Z7610